=== PATIENT | female | born 1945 | race Caucasian/White ===

== ENCOUNTER 2023-10-25 14:55 | Emergency (ER) | payer MEDICARE, OTHER, SELFPAY ==
[2023-10-25 14:59] VITALS: BP 164/81
[2023-10-25 17:29] VITALS: BP 160/70
--- NOTE | 2023-10-25 17:43 | ED.GENMED ---
History of Present Illness
<Drew Buchanan PA-C - Last Filed: 10/26/23 09:36>
General
Chief Complaint: Head Injury
Time Seen by Provider: 10/25/23 15:36
Travel History
Have you had any contact with someone who has COVID-19?: No
Do you have any symptoms of coronavirus? Fever > 100 degrees, chills, cough, shortness of breath, sore throat, loss of taste or smell, muscle aches, or headache?: No
History of Present Illness
History of Present Illness:
77-year-old female with history of Parkinson's presents the emergency department for evaluation. Bruising and swelling to the left temporal skull for the past week after a minor fall. She did strike her head against a table. Denies loss of
consciousness. She has not had any significant headaches, neck pain, or vision changes since that time. 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
concerned regarding the jaundiced discoloration of the bruise. Patient denies extremity paresthesias. She is not on any anticoagulants
Past History
<Drew Buchanan PA-C - Last Filed: 10/26/23 09:36>
Past History
ED Past Medical History: Hypercholesterolemia, NIDDM, Other (Constipation, osteoarthritis), Other (Sarcoidosis) and Other (parkinsons)
ED Past Surgical History: Orthopedic (L5-S1 discectomy, left shoulder replacement, right carpal tunnel surgery, right shoulder surgery)
Social History
Tobacco: Non-smoker
Alcohol: None
Drug: None
Personal: Single
Living: alone
Employment: Retired
Family History
Family History: Other
Review of Systems
<Drew Buchanan PA-C - Last Filed: 10/26/23 09:36>
Review of Systems
Allergies reviewed?: Yes
All Other Systems: ROS reviewed and negative except as documented in HPI and ROS
Phy Exam
<Drew Buchanan PA-C - Last Filed: 10/26/23 09:36>
Physical Exam
Physical Exam:
GEN: Well appearing, NAD, WDWN
HEENT: Jaundiced ecchymosis to the left temporal skull with no palpable deformity or crepitus ;oral mucosa moist, no scleral icterus, no nasal congestion
Cardiac: Regular rate
Lung: No respiratory distress, no tachypnea
MSK: No gross deformity or injuries
Skin: Good color, no pallor or jaundice, no rashes
Neuro: AO x3; CN II-XII grossly intact. BUE strength 5/5 in all hewitt, sensation intact and symmetric. BLE strength 5/5 in all hewitt, sensation intact and symmetric. Diffuse tremors at rest compatible with known parkinsonian syndrome
Psych: Calm, cooperative
Course
<Drew Buchanan PA-C - Last Filed: 10/26/23 09:36>
Orders/Labs/Results
Orders:
Orders
10/25/23 15:[address] [CT Head W/o Iv Contrast] Urgent
Comment:
Reason For Exam: pain
Vital Signs
Initial and Last Documented VS:
Initial Vital Signs
Temp Pulse Resp BP Pulse Ox
98.4 F 79 18 164/81 98
10/25/23 14:59 10/25/23 14:59 10/25/23 14:59 10/25/23 14:59 10/25/23 14:59
Last Documented Vital Signs
Temp Pulse Resp BP Pulse Ox
98.4 F 69 18 155/82 98
10/25/23 14:59 10/25/23 18:39 10/25/23 14:59 10/25/23 18:39 10/25/23 14:59
<Clari Virgen PA-C - Last Filed: 10/25/23 18:41>
Orders/Labs/Results
Orders:
Orders
10/25/23 15:[address] [CT Head W/o Iv Contrast] Urgent
Comment:
Reason For Exam: pain
Vital Signs
Initial and Last Documented VS:
Initial Vital Signs
Temp Pulse Resp BP Pulse Ox
98.4 F 79 18 164/81 98
10/25/23 14:59 10/25/23 14:59 10/25/23 14:59 10/25/23 14:59 10/25/23 14:59
Last Documented Vital Signs
Temp Pulse Resp BP Pulse Ox
98.4 F 69 18 155/82 98
10/25/23 14:59 10/25/23 18:39 10/25/23 14:59 10/25/23 18:39 10/25/23 14:59
<Clari Virgen PA-C - Last Filed: 10/25/23 18:41>
*Critical Care Note
Total Time (30-74mins, 75-104mins- exclusive of procedures): Not Applicable
<Clari Virgen PA-C - Last Filed: 10/25/23 18:41>
Update Note
Update Note:
10/25/2023 1840 PM
Patient with a history of Parkinson's apparently had a fall 1 week ago and has some yellowish bruising to her left parietal region of her scalp. She was brought in with a caregiver for concerns about this head injury. She was signed out to me
pending CT report. Her CT was reviewed and there was no acute traumatic findings. Patient's vitals are stable, she has mild hypertension. Her caregiver left to get her some food and will be back. We will plan to discharge her once her caregiver
returns
ED Attending Note
<Drew Buchanan PA-C - Last Filed: 10/26/23 09:36>
-
Portions of this chart may have been created with voice recognition software.� Occasional wrong word or��sound alike� substitutions may have occurred due to the inherent limitations of voice recognition software.
Discharge Plan
Departure
Patient Disposition: Home (Routine Discharge)
Date of Disposition: 10/25/23
Time of Disposition: 18:25
Patient with high blood pressure during this ER visit?: Yes
Discharge Problem:
Closed head injury
Instructions: Head Injury in Adults (DC), BLOOD PRESSURE
Prescriptions:
No Action
atorvastatin 10 MG tablet
10 mg PO DAILY
carbidopa-levodopa 1 EACH tablet
1 ea PO TID
rasagiline [Azilect] 0.5 MG tablet
0.5 mg PO DAILY
naproxen sodium [Aleve] 220 MG tablet
1 tab PO BID
docusate sodium 100 MG capsule
300 mg PO QPM
docusate sodium 100 MG capsule
200 mg PO DAILY
metformin 750 MG tablet extended release 24 hr
750 mg PO QPM
Metamucil
1 t PO QPM
Patient Comments:
one tablespoon
mupirocin 1 APPLIC ointment
1 applic intranasal BID Qty: 1 0RF
Miralax:
1 sc PO DAILY
sennosides [senna] 1 TABLET tablet
2 tab PO BID 0RF
aspirin 325 MG tablet
325 mg PO DAILY Qty: 30 0RF
Rx Instructions:
4 weeks after surgery to prevent blood clots
magnesium hydroxide 30 ML suspension
30 ml PO DAILYPRN PRN (Reason: constipation) 0RF
alum-mag hydroxide-simeth [Mag-Al Plus] 30 ML suspension
30 ml PO Q4HPRN PRN (Reason: indigestion) 0RF
oxycodone 5 MG tablet
5 mg PO Q4HPRN PRN (Reason: mild pain) Qty: 20 0RF
Rx Instructions:
1 every 4 hours as needed for pain
Sent to [place]
tramadol 50 MG tablet
50 mg PO QID PRN (Reason: pain) Qty: 15 0RF
Referrals:
Niecy Kamara MD [Family Provider] -
Activity Restrictions/Additional Instructions:
THE CAT SCAN SHOWED NO CAUSE FOR CONCERN.
RETURN FOR ANY EMERGENCIES.
Interventions
Interventions:
*Risk Screen - Suicide Last Done: 10/25/23 14:59
*General Assessment Last Done: 10/25/23 14:59
*Neglect/Abuse Screening Last Done: 10/25/23 14:59
*ED COVID-19 Vaccine History Last Done: 10/25/23 14:59
*Nursing Disposition Last Done: 10/25/23 18:39
ED- Neurological Assessment Last Done: 10/25/23 16:46
ED-Skin Assessment Last Done: 10/25/23 16:46
Discharge Date and Time
Discharge Date/Time: 10/25/23 19:00
[2023-10-25 18:38] VITALS: BP 155/82
[2023-10-25 18:39] VITALS: BP 155/82
== END 2023-10-25 19:00 | disposition home or self-care (01) ==
LOC: EMR 14:55
PROVIDERS: EMERGENCY PHYSICIAN Emergency Medicine; FAMILY PHYSICIAN Family Medicine
DX: S09.90XA Unspecified injury of head, initial encounter (principal); X58.XXXA Exposure to other specified factors, initial encounter; G20.A1 Parkinson's disease without dyskinesia, without mention of fluctuations; E78.00 Pure hypercholesterolemia, unspecified; E11.9 Type 2 diabetes mellitus without complications; K59.00 Constipation, unspecified; M19.90 Unspecified osteoarthritis, unspecified site; D86.9 Sarcoidosis, unspecified
CPT/HCPCS: 99284; 70450

== ENCOUNTER 2023-11-22 10:19 | Emergency (ER) | payer MEDICARE, OTHER, SELFPAY ==
[2023-11-22 10:22] VITALS: BP 156/88; BMI 25.5
[2023-11-22 11:00] VITALS: BP 162/79
--- NOTE | 2023-11-22 11:04 | ED.GENMED ---
History of Present Illness
General
Chief Complaint: Fall
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
Exam Limitations: none
Time Seen by Provider: 11/22/23 10:54
Travel History
Have you had any contact with someone who has COVID-19?: No
Do you have any symptoms of coronavirus? Fever > 100 degrees, chills, cough, shortness of breath, sore throat, loss of taste or smell, muscle aches, or headache?: No
History of Present Illness
History of Present Illness:
77-year-old female with a history of Parkinson disease stood up to turn from the seating position lost her balance and fell hitting her right posterior lower paralumbar area. She rested her head on the caregiver sneaker but did not hit her head
hard. She is on no thinners. She denies headache chest pain neck pain abdominal pain. Minimal right lower paralumbar pain
Past History
Past History
ED Past Medical History: Hypercholesterolemia, NIDDM, Other (Constipation, osteoarthritis), Other (Sarcoidosis) and Other (parkinsons)
ED Past Surgical History: Orthopedic (L5-S1 discectomy, left shoulder replacement, right carpal tunnel surgery, right shoulder surgery)
Social History
Tobacco: Non-smoker
Alcohol: None
Drug: None
Personal: Single
Living: alone
Employment: Retired
Family History
Family History: Other
Review of Systems
Review of Systems
All Other Systems: Not applicable
Respiratory: Reports no symptoms
Cardiac: Reports no symptoms
ABD/GI: Reports no symptoms
Phy Exam
Physical Exam
Physical Exam:
TRAUMA EXAM:
VITAL SIGNS: Vital signs reviewed, cooperative
DISTRESS: No active disease
EYES: Pupils reactive, no orbital trauma
NOSE: No deformity or epistaxis
FACE AND SCALP: No scalp or facial trauma, external canals no blood
NECK: Supple nontender
BACK: Back nontender, pelvis stable to compression
RESPIRATORY: No distress, breath sounds normal, no tender chest wall
CARDIAC: No murmur, pulses equal and strong
ABDOMEN: Soft nontender bowel sounds normal
SKIN: Skin intact no bleeding, color normal
EXTREMITIES: Nontender. Mild right lower paralumbar tenderness and right very low rib tenderness. No abrasion or ecchymosis
NEUROLOGICAL: Alert, oriented, no motor deficits. Sequela of Parkinson's
PSYCH: Mood affect normal
Course
Orders/Labs/Results
Orders:
Orders
11/22/23 11:01
Acetaminophen [Tylenol] 650 mg PO NOW STA
Lumbar Spine, 2 or 3 View [CR Lumbar Spine 2 Or 3 Views] Urgent
Comment:
Reason For Exam: trauma
Pelvis, 1 or 2 Views CR [CR Pelvis - 1 Or 2 Views ] Urgent
Comment:
Reason For Exam: trauma
Ribs, Right 3 View W/PA Chest [CR Ribs-right 3 Vw W/pa Chest*] Urgent
Comment:
Reason For Exam: trauma
Vital Signs
Initial and Last Documented VS:
Initial Vital Signs
Temp Pulse Resp BP Pulse Ox
97.6 F 68 16 156/88 98
11/22/23 10:22 11/22/23 10:22 11/22/23 10:22 11/22/23 10:22 11/22/23 10:22
Last Documented Vital Signs
Temp Pulse Resp BP Pulse Ox
97.6 F 68 16 156/88 98
11/22/23 10:22 11/22/23 10:22 11/22/23 10:22 11/22/23 10:22 11/22/23 10:39
*Radiology
Radiology exam reviewed: preliminary read by ED provider (Negative)
*Pulse Oximetry
Patient hypoxic: no
*Critical Care Note
Total Time (30-74mins, 75-104mins- exclusive of procedures): Not Applicable
Update Note
Update Note:
Patient is remained stable and nontoxic. No serious issues found on exam or testing. Discharged to follow-up.
ED Attending Note
-
Portions of this chart may have been created with voice recognition software.� Occasional wrong word or��sound alike� substitutions may have occurred due to the inherent limitations of voice recognition software.
Discharge Plan
Departure
Patient Disposition: Home (Routine Discharge)
Date of Disposition: 11/22/23
Time of Disposition: 12:23
Patient with high blood pressure during this ER visit?: Yes
Discharge Problem:
Fall/back contusion
Instructions: Contusion (DC), Preventing falls in adults, BLOOD PRESSURE
Prescriptions:
No Action
atorvastatin 10 MG tablet
10 mg PO DAILY
carbidopa-levodopa 1 EACH tablet
1 ea PO TID
rasagiline [Azilect] 0.5 MG tablet
0.5 mg PO DAILY
Rx Instructions:
currently on the pts lower back, unknown when it was applied
naproxen sodium [Aleve] 220 MG tablet
1 tab PO BID
docusate sodium 100 MG capsule
200 mg PO DAILY
metformin 750 MG tablet extended release 24 hr
750 mg PO QPM
alum-mag hydroxide-simeth [Mag-Al Plus] 30 ML suspension
30 ml PO Q4HPRN PRN (Reason: indigestion) 0RF
carbidopa-levodopa 50-200 mg Tablet Extended Release
1 tab PO HS
duloxetine 30 mg Capsule, Delayed Rel Sprinkle
30 mg PO DAILY
Referrals:
UNKNOWN - PT DOES,NOT KNOW [Family Provider] - Follow up in 2-3 days
Interventions
Interventions:
*Risk Screen - Suicide Last Done: 11/22/23 10:22
*General Assessment Last Done: 11/22/23 10:22
*Neglect/Abuse Screening Last Done: 11/22/23 10:22
ED- Fall Risk Assessment Last Done: 11/22/23 10:22
*ED COVID-19 Vaccine History Last Done: 11/22/23 10:22
ED-Musculoskeletal Assessment Last Done: 11/22/23 10:22
ED- Neurological Assessment Last Done: 11/22/23 10:22
ED-Skin Assessment Last Done: 11/22/23 10:22
[2023-11-22] MEDS: TYLENOL 650 MG PO (11:10)
== END 2023-11-22 12:49 | disposition home or self-care (01) ==
LOC: EMR 10:19
PROVIDERS: EMERGENCY PHYSICIAN Emergency Medicine
DX: S20.229A Contusion of unspecified back wall of thorax, initial encounter (principal); W19.XXXA Unspecified fall, initial encounter; R03.0 Elevated blood-pressure reading, without diagnosis of hypertension
CPT/HCPCS: 99283; 71101; 72100; 72170

== ENCOUNTER → 2023-12-13 09:04 | Outpatient (REF) | payer MEDICARE, OTHER, SELFPAY ==
[2023-12-13 10:25] LABS: % Basophils 0.5 % (0-2); % Eosinophils 1.7 % (0-6); % Immature Granulocytes 0.3 % (0-0.5); % Lymphocytes 30.8 % (20.5-51.1); % Monocytes 7.9 % (1.7-9.3); % Neutrophils 58.8 % (42.2-75.2); Absolute Eosinophils 0.1 10^3/uL (0-0.7); Absolute Monocytes 0.5 10^3/uL (0.1-0.6); Absolute Neutrophils 3.7 10^3/uL (1.4-6.5); Hematocrit 38.2 % (37.0-47.0); Hemoglobin 12.7 g/dL (12.0-16.0); Mean Corp Hgb Conc. 33.2 g/dL (33.0-37.0); Mean Corpuscular Hgb 32.7 pg (27.0-31.0); Mean Corpuscular Volume 98.5 fL (81.0-99.0); Mean Platelet Volume 10.7 fL (7.4-10.4); Nucleated Red Blood Cells % 0 %; Platelet Count 278 10^3/uL (130-400); Red Blood Cell Count 3.88 10^6/uL (4.20-5.40); Red Cell Dist. Width 12.6 % (11.5-14.5); White Blood Cell Count 6.4 10^3/uL (4.8-10.8)
[2023-12-13 10:52] LABS: Microalbumin, Random Urine 2.3 mg/dl (0.6-1.7)
[2023-12-13 10:53] LABS: Microalbumin/creatinine Ratio 17.5 mg/g
[2023-12-13 11:04] LABS: ALT (SGPT) < 10 U/L (0-35); AST (SGOT) 17 U/L (14-36); Albumin 4.6 g/dl (3.5-5.0); Alkaline Phosphatase 62 U/L (38-126); Blood Urea Nitrogen 16 mg/dl (7-17); Carbon Dioxide 27 mmol/L (22-30); Chloride 99 mmol/L (98-107); Glucose 104 mg/dl (70-99); HDL Cholesterol 51 mg/dl; LDL Cholesterol, Calculated 77 mg/dl; Potassium 4.3 mmol/L (3.5-5.1); Sodium 136 mmol/L (135-145); Total Bilirubin 0.7 mg/dl (0.2-1.3); Total Cholesterol 154 mg/dl (50-199); Total Protein 7.2 g/dl (6.3-8.2); Triglyceride 134 mg/dl (10-149); Very Low Density Lipoprotein 26 mg/dl (0-30); eGFR > 60.00
[2023-12-13 11:34] LABS: TSH Reflex To Free T4 0.92 uIU/ml (0.47-4.68)
== END ==
LOC: REG 09:04
PROVIDERS: ATTENDING PHYSICIAN Family Medicine
DX: E11.9 Type 2 diabetes mellitus without complications (principal); I10 Essential (primary) hypertension; E78.2 Mixed hyperlipidemia; R53.83 Other fatigue
CPT/HCPCS: 36415; 80053; 80061; 82043; 82570; 83036; 84443; 85025